=== PATIENT | male | born 1975 | race Caucasian/White ===

== ENCOUNTER 2018-11-27 17:44 | Emergency (ER) | payer MEDICAID ==
[2018-11-27] MEDS ORDERED: LORazepam 1 MG TABLET PO STA (18:50)
[2018-11-27] MEDS ORDERED: SULFAMETH/TRIMETH DS 800/160 MG TABLET PO STA (18:50)
[2018-11-27] MEDS ORDERED: BUFFERED LIDOCAINE 10 ML SYRINGE SUBQ STA (18:50)
--- NOTE | 2018-11-27 18:51 | ED Physician Documentation ---
PD HPI UPPER EXT INJURY - Stated complaint Stated Complaint: L ELBOW SWELLING - Chief complaint Chief Complaint: Ext Problem - History obtained from History obtained from: Patient - History of Present Illness Location: Left (With out specific injury he developed painful swelling over the left olecranon and over the last couple of days with some subjective fevers.) Review of Systems Constitutional: reports: Fever, Myalgias, Fatigue. denies: Chills Throat: reports: Reviewed and negative Cardiac: reports: Reviewed and negative Respiratory: reports: Reviewed and negative PD PAST MEDICAL HISTORY - Past Medical History Past Medical History: No - Past Surgical History Past Surgical History: Yes Ortho: Rotator cuff repair - Present Medications Home Medications: Ambulatory Orders Medication Instructions Recorded Confirmed Sulfamethoxazole/Trimethoprim 1 each PO BID #14 tablet 11/27/18 [Sulfamethoxazole-Tmp Ds Tablet] - Allergies Allergies/Adverse Reactions: Allergies Allergy/AdvReac Type Severity Reaction Status Date / Time No Known Drug Allergies Allergy Verified 11/27/18 18:03 - Social History Does the pt smoke?: Yes Smoking Status: Current every day smoker Does the pt drink ETOH?: Yes Does the pt have substance abuse?: Yes PD ED PE NORMAL - Vitals Vital signs reviewed: Yes - General General: Alert and oriented X 3, No acute distress - Extremities Extremities: Other (The left olecranon bursa is swollen and red full range of motion at the elbow.) - Neuro Neuro: Alert and oriented X 3, Normal speech Results - Vitals Vitals: Vital Signs - 24 hr 11/27/18 11/27/18 18:00 18:31 Temperature 36.9 C 36.8 C Heart Rate 74 Respiratory 14 Rate Blood Pressure 146/89 H 143/73 H O2 Saturation 100 Oxygen O2 Source Room air Procedures - Abscess I&D (location) L olecranon bursitis Preparation: Betadine, Lidocaine 1% Incision: Incised with scalpel, Purulent drainage (serous/bloody), Loculations broken, Culture obtained Other: Pt tolerated well, Dressing applied, Antibiotic prescribed Departure - Departure Disposition: 01 Home, Self Care Clinical Impression: Olecranon bursitis, left elbow Condition: Good Record reviewed to determine appropriate education?: Yes Instructions: ED Bursitis Elbow Olecranon Follow-Up: [facility] [Provider Group] - Within 1 week Prescriptions: Sulfamethoxazole/Trimethoprim [Sulfamethoxazole-Tmp Ds Tablet] 1 each PO BID #14 tablet Comments: We are performing a wound culture, the results should be done in 48-72 hours. If antibiotic change is necessary we will call you. Return if worse in the meantime, especially if you develop increased pain, fevers, cannot keep down the medication. Otherwise follow-up with your physician in approximately 2-3 days. Your blood pressure was elevated today on check into the emergency department. This does not mean that you have hypertension, it is a common phenomenon to come to the emergency department and have elevated blood pressure. I recommend that you see your primary care physician within the week to have it rechecked when you are feeling better.
[2018-11-27 20:02] VITALS: BP 131/80
== END 2018-11-27 20:05 | disposition home or self-care (01) ==
LOC: ED 17:44
DX: M70.22 Olecranon bursitis, left elbow (principal); R03.0 Elevated blood-pressure reading, without diagnosis of hypertension; F17.200 Nicotine dependence, unspecified, uncomplicated
CPT/HCPCS: 23931; 87070; 87181; 87205; 99283; A9270; J8499; 10060

== ENCOUNTER 2018-12-21 14:03 | Emergency (ER) | payer MEDICAID ==
--- NOTE | 2018-12-21 14:14 | ED Physician Documentation ---
PD HPI UPPER EXT INJURY - Stated complaint Stated Complaint: ELBOW PX - Chief complaint Chief Complaint: Ext Problem - History obtained from History obtained from: Patient - History of Present Illness Location: Left, Elbow Timing - onset: How many days ago (3) Timing - details: Gradual onset Pain level now: 6 Improved by: Rest Worsened by: Moving Associated symptoms: Tingling (Left index and middle finger) Similar symptoms before: Diagnosis (Bursitis) Recently seen: Emergency Dept (3 weeks ago) - Additonal information Additional information: Is a 43-year-old man who presents with his significant other complaints that he is left elbow bursitis is getting more painful. He was seen here in the emergency department 3 weeks ago where it was "lanced" he was put on antibiotics which he finished 2 weeks ago. Things were getting better but never really got back to normal and 3 days ago he did some "extra work" at work and the pain started flaring up again. He describes it as a pressure and feels like he cannot move the elbow. Is been taking the meloxicam and Advil. The elbow has felt hot he had some tingling down into the fingers. He is rating the pain now at a 6 out of 10 but it does get worse if he moves it. He is been nauseous but no vomiting. No fever although he is felt hot. And he is not a diabetic. He was referred to orthopedics but did not follow-up with them. Review of Systems Constitutional: denies: Fever GI: reports: Nausea. denies: Vomiting Skin: reports: Other (Red and hot to the touch over the left olecranon bursa) Musculoskeletal: reports: Joint pain, Joint swelling Neurologic: reports: Numbness (Paresthesias in the hand) Endocrine: reports: Other (Patient is not a diabetic) PD PAST MEDICAL HISTORY - Past Surgical History Past Surgical History: Yes Ortho: Rotator cuff repair - Present Medications Home Medications: Ambulatory Orders Medication Instructions Recorded Confirmed Hydrocodone/Acetaminophen 1 - 2 each PO Q6H PRN #14 tablet 12/21/18 [Hydrocodon-Acetaminophen 5-325] Ibuprofen [Motrin] 800 mg PO Q8H PRN #30 tablet 12/21/18 - Allergies Allergies/Adverse Reactions: Allergies Allergy/AdvReac Type Severity Reaction Status Date / Time No Known Drug Allergies Allergy Verified 12/21/18 14:13 - Social History Does the pt smoke?: Yes Smoking Status: Current every day smoker Does the pt drink ETOH?: Yes Does the pt have substance abuse?: Yes PD ED PE NORMAL - Vitals Vital signs reviewed: Yes - General General: Alert and oriented X 3, No acute distress, Well developed/nourished - Cardiac Cardiac: RRR - Respiratory Respiratory: No respiratory distress - Extremities Extremities: Other (There is swelling and erythema over the left olecranon bursa. He has limited flexion and extension secondary to the pain. The sensation is intact to light touch in all of the digits of the hand. There is no redness spreading up or down the arm and there is free range of motion about the shoulder and wrist.) - Neuro Neuro: Alert and oriented X 3, No motor deficit, No sensory deficit - Psych Psych: Normal mood, Normal affect Results - Vitals Vitals: Oxygen O2 Source Room air PD MEDICAL DECISION MAKING - ED course Complexity details: reviewed results, d/w patient, d/w family ED course: Elbow x-ray was obtained because the patient remembered an injury where he landed on the elbow and since then he is been feeling something, crunchy and there. There is no fracture. He was given Ativan 1 mg orally and attempts at aspirating the bursa were done without success. The area was cleansed with chlo rhexidine and anesthetized with 1% lidocaine. Attempts to aspirate any fluid were unsuccessful. He is can be given a Toradol injection and discharged with anti-inflammatories, few pain medications. He declined a note for work stating that it would not matter. He is encouraged not to put any pressure on this or to do any repetitive movement. He can use ice and he is referred back to orthopedics for follow-up. Return if he has spreading redness, fever or vomiting. Departure - Departure Disposition: 01 Home, Self Care Clinical Impression: Bursitis Qualifiers: Bursitis location: elbow Elbow bursitis location: olecranon bursitis Latera lity: left Qualified Code(s): M70.22 - Olecranon bursitis, left elbow Condition: Good Instructions: ED Bursitis Follow-Up: [facility] [Provider Group] Prescriptions: Hydrocodone/Acetaminophen [Hydrocodon-Acetaminophen 5-325] 1 - 2 each PO Q6H PRN #14 tablet PRN Reason: pain Ibuprofen [Motrin] 800 mg PO Q8H PRN #30 tablet PRN Reason: PAIN &/OR FEVER Comments: Take Motrin every 8 hours with food for the next 7-10 days. Take hydrocodone if needed for pain, but do not drive or operate machinery while taking this medicine. May ice the elbow. Avoid direct pressure to elbow or repetitive motion. Return if increasing pain, spreading redness, fever, vomiting or other problems arise. Follow-up with Orthopedist if not improving. Discharge Date/Time: 12/21/18 15:54
[2018-12-21] MEDS ORDERED: LIDOCAINE 1% 2 ML VIAL SUBQ STA (14:38)
[2018-12-21] MEDS ORDERED: LORazepam 1 MG TABLET PO STA (14:38)
--- NOTE | 2018-12-21 15:17 | XRAY Report ---
Reason: l elbow pain Procedure Date: 12/21/2018 Accession Number: [id number] / [id number] Procedure: XR - Elbow 3 View LT CPT Code: FULL RESULT: EXAM: LEFT ELBOW RADIOGRAPHY EXAM DATE: 12/21/2018 02:51 PM HISTORY: L elbow pain. COMPARISON: NONE TECHNIQUE: AP, lateral and radial head 3 view exam FINDINGS: No fracture, lytic or sclerotic bone lesion. Normal overall alignment. No joint effusion. There appears to be dorsal soft tissue swelling. IMPRESSION: Dorsal soft tissue swelling. No bony abnormality. [facility]
[2018-12-21] MEDS ORDERED: KETOROLAC 60 MG/2 ML VIAL IM STA (15:26)
[2018-12-21 15:55] VITALS: BP 131/69
== END 2018-12-21 15:54 | disposition home or self-care (01) ==
LOC: ED 14:03
DX: M70.22 Olecranon bursitis, left elbow (principal); F17.200 Nicotine dependence, unspecified, uncomplicated
CPT/HCPCS: 73080; 96361; 96365; 96375; 99284; J8499